=== PATIENT | male | born 1950 | race Native Hawaiian/Other Pacific Islander ===

== ENCOUNTER 2018-09-30 10:43 | Day surgery (SDC) | payer OTHER | END 2018-09-30 15:00 | disposition home or self-care (01) | LOC: OR 10:43 | PROC: 0DB68ZZ Excision of Stomach, Via Natural or Artificial Opening Endoscopic (ICD-10-PCS; principal; 2018-09-30) | PROC: 0D738ZZ Dilation of Lower Esophagus, Via Natural or Artificial Opening Endoscopic (ICD-10-PCS; 2018-09-30) | DX: K21.0 Gastro-esophageal reflux disease with esophagitis (principal); K22.4 Dyskinesia of esophagus; K22.2 Esophageal obstruction; K29.50 Unspecified chronic gastritis without bleeding; R13.19 Other dysphagia; R10.13 Epigastric pain | CPT/HCPCS: J2001; J2405; J2704 ==

== ENCOUNTER 2020-03-10 18:35 | Emergency (ER) | payer OTHER ==
[~2020-03-10] VITALS: Ht 177.8 cm; Wt 121.1 kg
[2020-03-10 19:28] LABS: PLATELET COUNT 204 K/uL (142-355)
[2020-03-10 19:30] LABS: POTASSIUM 3.7 mmol/L (3.6-5.2)
[2020-03-10 23:23] VITALS: BP 115/64
[2020-03-11 00:26] VITALS: TEMP 100.5
== END 2020-03-11 00:27 | disposition home or self-care (01) ==
LOC: ED 18:35
PROVIDERS: Family Medicine
DX: R10.84 Generalized abdominal pain (principal); K59.09 Other constipation; K51.80 Other ulcerative colitis without complications
CPT/HCPCS: 36415; 80053; 81000; 82150; 83690; 85027; 96374; 96375; 96376; 99284; J2175; J2405; Q9963

== ENCOUNTER 2020-06-21 09:13 | Outpatient (CLI) | payer OTHER | END 2020-06-21 19:23 | disposition home or self-care (01) | LOC: INF 09:13 | PROVIDERS: ATTEND Internal Medicine | DX: Z23 Encounter for immunization (principal) | CPT/HCPCS: 96372 ==

== ENCOUNTER 2020-07-19 09:41 | Outpatient (CLI) | payer OTHER | END 2020-07-19 21:43 | disposition home or self-care (01) | LOC: INF 09:41 | PROVIDERS: ATTEND Internal Medicine | DX: Z23 Encounter for immunization (principal) | CPT/HCPCS: 96372 ==

== ENCOUNTER 2021-04-17 14:37 | Outpatient (CLI) | payer OTHER ==
[2021-04-17 15:08] LABS: POTASSIUM 3.9 mmol/L (3.6-5.2)
[2021-04-17 15:36] LABS: PLATELET COUNT 274 K/uL (142-355)
== END 2021-04-17 20:26 | disposition home or self-care (01) ==
LOC: LABW 14:37
PROVIDERS: ATTEND Internal Medicine Gastroenterology
DX: K51.80 Other ulcerative colitis without complications (principal)
CPT/HCPCS: 36415; 80053; 85008; 85027; 85652; 86140

== ENCOUNTER 2021-09-19 09:52 | Outpatient (CLI) | payer OTHER ==
[2021-09-19 10:07] LABS: PLATELET COUNT 223 K/uL (142-355)
[2021-09-19 10:16] LABS: POTASSIUM 3.9 mmol/L (3.6-5.2)
== END 2021-09-19 19:16 | disposition home or self-care (01) ==
LOC: LABW 09:52
PROVIDERS: ATTEND Internal Medicine Cardiovascular Disease
DX: Z79.899 Other long term (current) drug therapy (principal); R06.09 Other forms of dyspnea
CPT/HCPCS: 36415; 80048; 83880; 85027